=== PATIENT | female | born 1940 ===

== ENCOUNTER → 2019-06-19 | Outpatient (CLI) | payer MEDICARE ==
[2019-06-19 10:57] LABS: HEMATOCRIT 26.3 % (36.0-47.0)
[2019-06-19 11:04] LABS: HEMOGLOBIN 8.9 g/dL (12.0-15.5)
== END | disposition home or self-care (01) ==
LOC: SPEC 10:50
PROVIDERS: ATTEND Orthopaedic Surgery
DX: D62 Acute posthemorrhagic anemia (principal)
CPT/HCPCS: 36415; 85014; 85018

== ENCOUNTER → 2019-06-21 | Outpatient (CLI) | payer MEDICARE ==
[2019-06-21 12:59] LABS: HEMATOCRIT 24.2 % (36.0-47.0)
== END | disposition home or self-care (01) ==
LOC: SPEC 12:53
PROVIDERS: ATTEND Orthopaedic Surgery
DX: D62 Acute posthemorrhagic anemia (principal)
CPT/HCPCS: 36415; 85014; 85018

== ENCOUNTER → 2019-06-25 | Outpatient (CLI) | payer MEDICARE ==
[2019-06-25 12:59] LABS: HEMATOCRIT 27.2 % (36.0-47.0); HEMOGLOBIN 9.1 g/dL (12.0-15.5)
== END | disposition home or self-care (01) ==
LOC: SPEC 12:50
PROVIDERS: ATTEND Orthopaedic Surgery
DX: D62 Acute posthemorrhagic anemia (principal)
CPT/HCPCS: 36415; 85014; 85018